=== PATIENT | male | born 1995 | race Caucasian/White ===

== ENCOUNTER 2017-07-01 20:51 | Emergency (ER) | payer OTHER ==
[~2017-07-01] VITALS: Ht 177.8 cm; Wt 73.6 kg
[2017-07-01 20:52] VITALS: BP 108/74
== END 2017-07-01 22:49 | disposition home or self-care (01) ==
LOC: ED 22:40
DX: S43.51XA Sprain of right acromioclavicular joint, initial encounter (principal); W00.0XXA Fall on same level due to ice and snow, initial encounter; Y93.89 Activity, other specified; Y92.89 Other specified places as the place of occurrence of the external cause; Y99.8 Other external cause status
CPT/HCPCS: 99284